=== PATIENT | male | born 1980 | race Caucasian/White ===

== ENCOUNTER 2018-07-02 08:57 | Emergency (ER) | payer OTHER ==
[~2018-07-02] VITALS: Ht 172.7 cm; Wt 65.8 kg
[~2018-07-02 08:57] MED LIST: BACTRIM DS 8001 TA1 PO; MOTRIN800 MG PO; REFRESH CELLUVI1 SOL OPH; VICODIN 5/500 505 MG PO
[2018-07-02] MEDS ORDERED: Tobrex Ophth S2.5 ML OPH (09:08)
== END 2018-07-02 09:18 | disposition home or self-care (01) ==
LOC: ED 08:57
DX: T15.02XA Foreign body in cornea, left eye, initial encounter (principal); R03.0 Elevated blood-pressure reading, without diagnosis of hypertension; Y92.89 Other specified places as the place of occurrence of the external cause

== ENCOUNTER 2025-08-06 11:53 | Emergency (ER) | payer OTHER ==
[~2025-08-06] VITALS: Ht 167.6 cm; Wt 68.0 kg
[~2025-08-06 11:53] MED LIST changes: +Tobrex Ophth S2.5 ML OPH
[2025-08-06] MEDS ORDERED: Tetracaine Hydrochloride 0.5% 4 ML BOT OPH ONE (12:05)
[2025-08-06] MEDS ORDERED: FLUORESCEIN SODIUM 1 MG STRIP OPH ONE (12:05)
[2025-08-06] MEDS ORDERED: ERYTHROMYCIN 1 GM TUBE OPH ONE (12:20)
[2025-08-06] MEDS ORDERED: Tdap Vaccine 0.5 ML SYR (Adult Vaccine) IM ONE (12:20)
== END 2025-08-06 12:30 | disposition home or self-care (01) ==
LOC: ED 11:53
DX: T15.12XA Foreign body in conjunctival sac, left eye, initial encounter (principal); X58.XXXA Exposure to other specified factors, initial encounter; Y93.89 Activity, other specified; Y92.89 Other specified places as the place of occurrence of the external cause; Y99.8 Other external cause status